=== PATIENT | male | born 1990 | race Caucasian/White ===

== ENCOUNTER 2017-08-29 03:42 | Emergency (ER) | payer MEDICAID, SELFPAY ==
[2017-08-29] VITALS (9 sets, daily range): BP systolic 116–159; BP diastolic 70–91; PULSE 80–92; RESP 12–18; TEMP 37; O2SAT 97–99; BMI 34.2
--- NOTE | 2017-08-29 04:29 | ED.VISSUMM ---
- ER Visit Summary Date of Service: 08/29/17 Chief Complaint: Suicidal ideation History of Present Illness: The patient is a 26 M brought in by police for suicidal ideation. Patient has had multiple recent stressors, including having 2 vehicles repossessed, his left him, and a job fell through. Tonight he is reportedly standing by a pond with the initial plan to drown himself. She denies any prior attempts to hurt himself. As a child he was in counseling and was on medication for depression, but is not been on anything for several years. Physical Examination: Vital signs include a blood pressure of 159/91, otherwise unremarkable. Head and neck examination unremarkable. Heart is regular rate and rhythm. Lung sounds are clear. Abdomen is soft nontender. Patient does admit to suicidal thoughts. He has poor eye contact and speaks in a quiet voice. Test Results: CBC was a white count 12.8 with normal differential. Chemistry studies unremarkable. Tox screen and EtOH are negative. Emergency Department Course and Treatment: Patient will be seen and evaluated by crisis. Treatment Plan: [] Disposition: Pending crisis evaluation Impression: Suicidal ideation This note was generated with [employer] dictation software. It may contain incorrect words, spelling, and punctuation that were not noted in review of the chart prior to signing ED Disposition - Plan for ED Patient: Chief Complaint: Suicidal Referrals: Care Physician,No Primary [Primary Care Provider] -
[2017-08-29 04:40] LABS: Absolute Lymphocyte Count 2.89 X10^3/ul (0.83-4.51); Basophil# 0.02 X10^3/uL; Basophil% 0.2 % (0-1); Eosinophil# 0.07 X10^3/uL; Eosinophils% 0.5 % (0-5); Hematocrit 42.9 % (40-54); Hemoglobin 15.3 g/dl (13.0-16.5); Lymphocyte # 2.89 X10^3/ul (4.0); Lymphocyte % 22.6 % (19-41); Mean Corp Hgb Conc 35.7 g/gl (32-36); Mean Corpuscular Hgb 31.2 pg (27.0-32.0); Mean Corpuscular Volume 87.4 fL (80-94); Mean Platelet Vol. 9.7 fl (6.2-12.0); Monocyte# 0.78 X10^3/uL; Monocyte% 6.1 % (0-10); Neutrophil # 8.98 X10^3/uL (2.7-7.7); Neutrophil % 70.4 % (47-70); Platelet Count 265 K/mm3 (150-450); RBC Distribution Width CV 13.2 % (11.6-14.6); RBC Distribution Width SD 41.5 fl (35.1-43.9); Red Blood Count 4.91 M/mm3 (4.6-6.2); White Blood Count 12.8 K/mm3 (4.4-11.0)
--- NOTE | 2017-08-29 04:42 | ED.RN ---
CALLED CRISIS TO LET THEM KNOW PT NEEDS TO BE SEEN. [employer] LETTING LOADER TECHNICIAN KNOW.
[2017-08-29 04:43] LABS: POSITIVE COUNT NO; POSITIVE DIFFERENTIAL NO; POSITIVE MORPHOLOGY NO
--- NOTE | 2017-08-29 04:47 | ED.RN ---
patients mother came to see patient. Patient refuses any visitors at this time. Mothers information Linda Silvia [phone]
--- NOTE | 2017-08-29 04:48 | ED.RN ---
Patients belongings removed from patient at this time. Patient maintains cell phone can wallet at this time
[2017-08-29] MEDS: Acetaminophen 500 MG Tablet 1000 MG PO (04:57)
[2017-08-29 05:11] LABS: Alcohol, Blood (Medical)-Serum < 3.0 mg/dL
[2017-08-29 05:16] LABS: Anion Gap 9 (5-15); BUN 11 mg/dL (7-18); BUN/Creat Ratio 9.2 RATIO (10-20); Calcium,Total 9.1 mg/dL (8.5-10.1); Chloride 104 mmol/L (98-107); EST Glomerular Filtration Rate 76 mL/min (>60); Est Glom Filt Rate - Afr Amer 92 mL/min (>60); Estimated Creatinine Clearance 100.59 ml/min; Glucose 111 mg/dL (74-106); Potassium 3.8 mmol/L (3.5-5.1); Sodium Level 141 mmol/L (136-145)
[2017-08-29 05:23] LABS: Amphetamine Urine VISTA NEGATIVE (<1000 ng/mL); Barbiturate Urine VISTA NEGATIVE (< 200 ng/mL); Benzodiazepine Urine VISTA NEGATIVE (< 200 ng/mL); Cocaine Urine VISTA NEGATIVE (< 300 ng/mL); Ecstacy Urine VISTA NEGATIVE (< 500 ng/mL); Methadone Urine VISTA NEGATIVE (< 300 ng/mL); PCP Urine VISTA NEGATIVE (< 25 ng/mL); THC Urine VISTA NEGATIVE (< 50 ng/mL); Vista UDS pH Range 5
== END 2017-08-29 14:49 ==
LOC: ED 04:09
PROVIDERS: Emergency Provider Emergency Medicine
DX: R45.851 Suicidal ideations (principal); Z87.891 Personal history of nicotine dependence
CPT/HCPCS: 36415; 80048; 80307; 80320; 85025; 99284; G0480